=== PATIENT | male | born 1950 | race Caucasian/White ===

== ENCOUNTER 2016-10-18 16:45 | Inpatient (IN) | payer MEDICARE, MEDICAID ==
[~2016-10-18] VITALS: Ht 188 cm; Wt 77.3 kg
[~2016-10-18 16:45] MED LIST: AMLO-512 PO; ASPI-556 PO; ATOR10TA84 PO; BENZ1TAB10 PO; CARV25 PO; DIVA250T45 PO; FINA5TAB41 PO; GABA-531 PO; LIDOP TD; LISI-661 PO; LORA10TA7 PO; METF500T4 PO; MIRAUD PO; QUET300T2 PO; RISP1TAB7 PO; SITA25 PO; TAMS0.4C32 PO; THIA100 PO
[2016-10-18] MEDS ORDERED: LOSA50TA37 PO (18:39)
[2016-10-18] MEDS ORDERED: LISI-662 PO (18:39)
[2016-10-18] MEDS ORDERED: RISP1TAB54 PO (18:39)
[2016-10-18 18:40] LABS: APPEARANCE,URINE CLEAR (CLEAR); GLUCOSE, URINE (UA) >=1000 mg/dL (NEGATIVE); KETONES,URINE NEGATIVE (NEGATIVE); LEUKOCYTE ESTERASE ,URINE NEGATIVE (NEGATIVE); OCCULT BLOOD,URINE NEGATIVE (NEGATIVE); PH,URINE 6.5 (5.0-8.0); PROTEIN,URINE NEGATIVE (NEGATIVE)
[2016-10-18 18:41] LABS: ADD UA MICROSCOPIC YES
[2016-10-18 18:42] LABS: BASOPHILS % (AUTO) 0.4 % (0.0-2.0); EOSINOPHILS % (AUTO) 1.1 % (1.0-6.0); HEMOGLOBIN 11.2 g/dL (13.5-17.5); LYMPHOCYTES # (AUTO) 1.5 K/uL (1.0-4.8); LYMPHOCYTES % (AUTO) 23.3 % (22.0-44.0); MEAN CORPUSCULAR HGB CONC 32.9 G/dL (31.0-37.0); MEAN CORPUSCULAR VOLUME 88 fL (80-100); MONOCYTES # (AUTO) 0.6 K/uL (0.1-1.0); MONOCYTES % (AUTO) 10.2 % (2.0-9.0); NEUTROPHILS # (AUTO) 4.1 K/uL (1.8-7.7); PLATELET COUNT (AUTO) 84 K/uL (150-450); RED BLOOD CELL COUNT(AUTO) 3.85 MIL/uL (4.50-5.90); RED CELL DISTRIBUTION WIDTH 12.5 % (11.5-14.5); WHITE BLOOD COUNT (AUTO) 6.2 K/uL (4.5-11.0)
[2016-10-18 18:49] LABS: SQUAMOUS EPITHELIAL CELL,UR Rare /LPF (None Seen)
[2016-10-18 18:51] LABS: RBC,URINE None Seen /HPF (0-2); WBC,URINE 0-2 /HPF (0-5)
[2016-10-18 18:51] LABS: ANION GAP 7 mmol/L (8-16); CALCIUM, TOTAL 8.8 mg/dL (8.8-10.5); CARBON DIOXIDE 24 mmol/L (22-29); CHLORIDE 102 mmol/L (98-107); CREATININE 1.03 mg/dL (0.60-1.30); GLOMERULAR FILTR. RATE CALC > 60 mL/min (>60); POTASSIUM 4.1 mmol/L (3.5-5.1); SODIUM SERUM 133 mmol/L (136-145); UREA NITROGEN, BLOOD 19 mg/dL (7-18)
[2016-10-18 18:57] LABS: ALANINE AMINOTRANSFERASE 66 U/L (12-78); ALBUMIN 3.1 g/dL (3.4-5.0); ASPARTATE AMINOTRANSFERASE 27 U/L (15-37); BILIRUBIN,TOTAL 0.3 mg/dL (0.1-1.0); TOTAL PROTEIN, SERUM 6.5 g/dL (6.4-8.2)
[2016-10-18 19:15] LABS: VALPROIC ACID < 3 mcg/mL (50-100)
[2016-10-18] MEDS ORDERED: LORazepam 2 MG TABLET PO ONE (20:00)
[2016-10-18] MEDS ORDERED: QUEtiapine FUMARATE 100 MG TABLET PO ONE (20:00)
[2016-10-18 20:21] LABS: GLUCOSE,POINT OF CARE 356 MG/DL (70-110)
[2016-10-18] MEDS ORDERED: SODIUM CHLORIDE 0.9% 1,000 ML IV ONE (20:30)
[2016-10-18] MEDS ORDERED: INSULIN REGULAR, HUMAN 100 UNITS/ML IVP ONE (20:30)
[2016-10-18] MEDS ORDERED: HALOPERIDOL 5 MG TABLET PO PRN (20:30)
[2016-10-18] MEDS ORDERED: BENZTROPINE MESYLATE 1 MG TABLET PO SCH (21:00)
[2016-10-18] MEDS ORDERED: DIVALPROEX SODIUM 500 MG ER TABLET PO SCH (21:00)
[2016-10-18] MEDS ORDERED: QUEtiapine FUMARATE 300 MG TABLET PO SCH (21:00)
[2016-10-18 21:40] LABS: GLUCOSE COMMENT 1 Doctor Notified; GLUCOSE,POINT OF CARE 195 MG/DL (70-110)
[2016-10-19 00:02] VITALS: BP 111/75
[2016-10-19 00:35] VITALS: BP 111/75
[2016-10-19] MEDS ORDERED: -PHARMACY VACCINE NOTE- MISC ONE ×2 (02:15)
[2016-10-19 06:01] LABS: GLUCOSE,POINT OF CARE 261 MG/DL (70-110)
[2016-10-19 08:26] VITALS: BP 119/65
[2016-10-19] MEDS: BENZTROPINE MESYLATE 1 MG TABLET PO SCH ×2 (08:44→20:06)
[2016-10-19] MEDS: DIVALPROEX SODIUM 500 MG ER TABLET PO SCH ×2 (08:45→16:35)
[2016-10-19] MEDS ORDERED: BENZOCAINE/MENTHOL LOZENGE MM PRN (09:15)
[2016-10-19] MEDS ORDERED: INSULIN ASPART 100 UNITS/ML SQ PRN (09:15)
[2016-10-19] MEDS ORDERED: ACETAMINOPHEN 325 MG TABLET PO PRN (09:15)
[2016-10-19] MEDS ORDERED: MAG HYDROX/AL HYDROX/SIMETH ES 30 ML SUSPENSION UDCUP PO PRN (09:15)
[2016-10-19] MEDS ORDERED: GLUCAGON,HUMAN RECOMBINANT 1 MG VIAL IM PRN (09:15)
[2016-10-19] MEDS ORDERED: CloNIDine HCL 0.1 MG TABLET PO PRN (09:15)
[2016-10-19] MEDS ORDERED: BACITRACIN 28.4 GM OINTMENT TP PRN (09:15)
[2016-10-19] MEDS ORDERED: PETROLATUM,WHITE 71 GM JELLY TP PRN (09:15)
[2016-10-19] MEDS ORDERED: MAGNESIUM HYDROXIDE SUSPENSION 30 ML UDCUP PO PRN (09:15)
[2016-10-19 16:11] VITALS: BP 113/60
[2016-10-19] MEDS: CARVEDILOL 25 MG TABLET PO SCH (16:35)
[2016-10-19] MEDS: MetFORMIN HCL 500 MG TABLET PO SCH (16:35)
[2016-10-19 16:45] LABS: GLUCOSE COMMENT 1 Doctor Notified; GLUCOSE,POINT OF CARE 433 MG/DL (70-110)
[2016-10-19] MEDS: INSULIN ASPART 100 UNITS/ML SQ PRN (17:08)
[2016-10-19 18:51] LABS: GLUCOSE,POINT OF CARE 291 MG/DL (70-110)
[2016-10-19 19:34] VITALS: BP 115/68
[2016-10-19] MEDS: LORazepam 2 MG TABLET PO PRN (19:36)
[2016-10-19] MEDS: QUEtiapine FUMARATE 300 MG TABLET PO SCH (20:06)
[2016-10-19 20:26] LABS: GLUCOSE,POINT OF CARE 98 MG/DL (70-110)
[2016-10-19] MEDS: ZOLPIDEM TARTRATE 10 MG TABLET PO PRN (21:03)
[2016-10-20 00:12] VITALS: BP 102/61
[2016-10-20 06:11] LABS: GLUCOSE,POINT OF CARE 217 MG/DL (70-110)
[2016-10-20] MEDS: LEVOTHYROXINE SODIUM 25 MCG TABLET PO SCH (06:41)
[2016-10-20] MEDS: MetFORMIN HCL 500 MG TABLET PO SCH ×2 (06:41→17:04)
[2016-10-20] MEDS: INSULIN ASPART 100 UNITS/ML SQ PRN ×3 (06:55→16:59)
[2016-10-20 08:28] VITALS: BP 105/66
[2016-10-20] MEDS: DIVALPROEX SODIUM 500 MG ER TABLET PO SCH ×2 (09:21→17:04)
[2016-10-20] MEDS: BENZTROPINE MESYLATE 1 MG TABLET PO SCH ×2 (09:22→20:37)
[2016-10-20] MEDS: TERAZOSIN HCL 2 MG CAPSULE PO SCH (09:22)
[2016-10-20] MEDS: CHOLECALCIFEROL (VIT D3) 1,000 UNITS TABLET PO SCH (09:22)
[2016-10-20] MEDS: CARVEDILOL 25 MG TABLET PO SCH ×2 (09:22→17:04)
[2016-10-20] MEDS: LISINOPRIL 20 MG TABLET PO SCH (09:23)
[2016-10-20] MEDS: NICOTINE 21 MG/24 HOUR PATCH TD SCH (09:24)
[2016-10-20] MEDS: LORazepam 2 MG TABLET PO PRN ×2 (09:30→14:34)
[2016-10-20] MEDS: QUEtiapine FUMARATE 100 MG TABLET PO PRN (16:09)
[2016-10-20 16:29] VITALS: BP 136/77
[2016-10-20 17:41] LABS: GLUCOSE COMMENT 1 Received Meds; GLUCOSE,POINT OF CARE 291 MG/DL (70-110)
[2016-10-20 17:41] LABS: GLUCOSE,POINT OF CARE 260 MG/DL (70-110)
[2016-10-20] MEDS: QUEtiapine FUMARATE 300 MG TABLET PO SCH (20:37)
[2016-10-20 21:36] LABS: GLUCOSE,POINT OF CARE 68 MG/DL (70-110)
[2016-10-20 21:36] LABS: GLUCOSE,POINT OF CARE 88 MG/DL (70-110)
[2016-10-21 00:23] VITALS: BP 105/68
[2016-10-21 06:16] LABS: GLUCOSE,POINT OF CARE 174 MG/DL (70-110)
[2016-10-21] MEDS: LEVOTHYROXINE SODIUM 25 MCG TABLET PO SCH (07:01)
[2016-10-21] MEDS: MetFORMIN HCL 500 MG TABLET PO SCH ×2 (07:01→16:15)
[2016-10-21] MEDS: INSULIN ASPART 100 UNITS/ML SQ PRN ×4 (07:08→21:12)
[2016-10-21 08:53] VITALS: BP 101/68
[2016-10-21] MEDS: CARVEDILOL 25 MG TABLET PO SCH ×2 (09:02→16:14)
[2016-10-21] MEDS: LISINOPRIL 20 MG TABLET PO SCH (09:02)
[2016-10-21] MEDS: TERAZOSIN HCL 2 MG CAPSULE PO SCH (09:02)
[2016-10-21] MEDS: LORazepam 2 MG TABLET PO PRN ×2 (09:03→16:15)
[2016-10-21] MEDS: DIVALPROEX SODIUM 500 MG ER TABLET PO SCH ×2 (09:04→16:14)
[2016-10-21] MEDS: CHOLECALCIFEROL (VIT D3) 1,000 UNITS TABLET PO SCH (09:06)
[2016-10-21] MEDS: BENZTROPINE MESYLATE 1 MG TABLET PO SCH ×2 (09:06→20:56)
[2016-10-21] MEDS: NICOTINE 21 MG/24 HOUR PATCH TD SCH (09:07)
[2016-10-21 11:30] LABS: GLUCOSE,POINT OF CARE 284 MG/DL (70-110)
[2016-10-21] MEDS: QUEtiapine FUMARATE 100 MG TABLET PO PRN (16:15)
[2016-10-21] MEDS: IBUPROFEN 600 MG TABLET PO PRN (16:15)
[2016-10-21 16:23] VITALS: BP 118/68
[2016-10-21 17:31] LABS: GLUCOSE COMMENT 1 Received Meds; GLUCOSE,POINT OF CARE 278 MG/DL (70-110)
[2016-10-21] MEDS: QUEtiapine FUMARATE 300 MG TABLET PO SCH (20:56)
[2016-10-21 22:16] LABS: GLUCOSE COMMENT 1 Received Meds; GLUCOSE,POINT OF CARE 229 MG/DL (70-110)
[2016-10-22 00:43] VITALS: BP 123/79
[2016-10-22 06:12] LABS: GLUCOSE,POINT OF CARE 239 MG/DL (70-110)
[2016-10-22] MEDS: LEVOTHYROXINE SODIUM 25 MCG TABLET PO SCH (06:44)
[2016-10-22] MEDS: MetFORMIN HCL 500 MG TABLET PO SCH ×2 (06:44→17:07)
[2016-10-22] MEDS: INSULIN ASPART 100 UNITS/ML SQ PRN ×3 (06:48→17:02)
[2016-10-22 08:02] VITALS: BP 120/67
[2016-10-22] MEDS: TERAZOSIN HCL 2 MG CAPSULE PO SCH (09:11)
[2016-10-22] MEDS: BENZTROPINE MESYLATE 1 MG TABLET PO SCH ×2 (09:11→20:19)
[2016-10-22] MEDS: DIVALPROEX SODIUM 500 MG ER TABLET PO SCH ×2 (09:11→17:07)
[2016-10-22] MEDS: CARVEDILOL 25 MG TABLET PO SCH ×2 (09:11→17:07)
[2016-10-22] MEDS: CHOLECALCIFEROL (VIT D3) 1,000 UNITS TABLET PO SCH (09:11)
[2016-10-22] MEDS: LISINOPRIL 20 MG TABLET PO SCH (09:12)
[2016-10-22] MEDS: NICOTINE 21 MG/24 HOUR PATCH TD SCH (09:15)
[2016-10-22] MEDS: ALBUTEROL SULFATE HFA 90 MCG/PUFF 8 GM INHALER IH PRN (10:19)
[2016-10-22 11:41] LABS: GLUCOSE,POINT OF CARE 212 MG/DL (70-110)
[2016-10-22 16:13] VITALS: BP 111/71
[2016-10-22 16:46] LABS: GLUCOSE,POINT OF CARE 196 MG/DL (70-110)
[2016-10-22] MEDS: LORazepam 2 MG TABLET PO PRN (17:07)
[2016-10-22] MEDS: QUEtiapine FUMARATE 300 MG TABLET PO SCH (20:19)
[2016-10-22 21:12] LABS: GLUCOSE,POINT OF CARE 170 MG/DL (70-110)
[2016-10-23] VITALS: BP 123/60
[2016-10-23] MEDS: ZOLPIDEM TARTRATE 10 MG TABLET PO PRN
[2016-10-23 06:15] LABS: GLUCOSE,POINT OF CARE 185 MG/DL (70-110)
[2016-10-23] MEDS: LEVOTHYROXINE SODIUM 25 MCG TABLET PO SCH (06:42)
[2016-10-23] MEDS: MetFORMIN HCL 500 MG TABLET PO SCH ×2 (06:42→16:09)
[2016-10-23] MEDS: INSULIN ASPART 100 UNITS/ML SQ PRN ×4 (06:54→21:03)
[2016-10-23 08:02] VITALS: BP 123/60
[2016-10-23] MEDS: LISINOPRIL 20 MG TABLET PO SCH (09:14)
[2016-10-23] MEDS: MULTIVITAMINS WITH MINERALS, THERAPEUTIC TABLET PO SCH (09:14)
[2016-10-23] MEDS: CHOLECALCIFEROL (VIT D3) 1,000 UNITS TABLET PO SCH (09:14)
[2016-10-23] MEDS: CARVEDILOL 25 MG TABLET PO SCH ×2 (09:15→16:09)
[2016-10-23] MEDS: DIVALPROEX SODIUM 500 MG ER TABLET PO SCH ×2 (09:15→16:08)
[2016-10-23] MEDS: TERAZOSIN HCL 2 MG CAPSULE PO SCH (09:15)
[2016-10-23] MEDS: BENZTROPINE MESYLATE 1 MG TABLET PO SCH ×2 (09:15→20:16)
[2016-10-23] MEDS: NICOTINE 21 MG/24 HOUR PATCH TD SCH (09:19)
[2016-10-23] MEDS: LORazepam 2 MG TABLET PO PRN (09:39)
[2016-10-23 11:21] LABS: GLUCOSE,POINT OF CARE 243 MG/DL (70-110)
[2016-10-23 16:07] VITALS: BP 116/70
[2016-10-23 17:46] LABS: GLUCOSE COMMENT 1 Received Meds; GLUCOSE,POINT OF CARE 190 MG/DL (70-110)
[2016-10-23] MEDS: QUEtiapine FUMARATE 300 MG TABLET PO SCH (20:16)
[2016-10-23] MEDS: ALBUTEROL SULFATE HFA 90 MCG/PUFF 8 GM INHALER IH PRN (21:32)
[2016-10-23 22:21] LABS: GLUCOSE,POINT OF CARE 228 MG/DL (70-110)
[2016-10-24 00:02] VITALS: BP 112/71
[2016-10-24 06:31] LABS: GLUCOSE,POINT OF CARE 182 MG/DL (70-110)
[2016-10-24] MEDS: LEVOTHYROXINE SODIUM 25 MCG TABLET PO SCH (06:39)
[2016-10-24] MEDS: MetFORMIN HCL 500 MG TABLET PO SCH ×2 (06:39→17:08)
[2016-10-24] MEDS: INSULIN ASPART 100 UNITS/ML SQ PRN ×4 (07:02→20:43)
[2016-10-24] MEDS: MULTIVITAMINS WITH MINERALS, THERAPEUTIC TABLET PO SCH (08:32)
[2016-10-24] MEDS: CARVEDILOL 25 MG TABLET PO SCH ×2 (08:32→17:09)
[2016-10-24] MEDS: DIVALPROEX SODIUM 500 MG ER TABLET PO SCH ×2 (08:32→17:08)
[2016-10-24] MEDS: CHOLECALCIFEROL (VIT D3) 1,000 UNITS TABLET PO SCH (08:32)
[2016-10-24] MEDS: BENZTROPINE MESYLATE 1 MG TABLET PO SCH ×2 (08:33→20:45)
[2016-10-24 08:34] VITALS: BP_SYST 116; BP_SYST 149; BP_DIAS 53; BP_DIAS 89
[2016-10-24] MEDS: LISINOPRIL 20 MG TABLET PO SCH (08:34)
[2016-10-24] MEDS: TERAZOSIN HCL 2 MG CAPSULE PO SCH (08:34)
[2016-10-24] MEDS: NICOTINE 21 MG/24 HOUR PATCH TD SCH (08:34)
[2016-10-24 09:20] VITALS: BP 132/82
[2016-10-24] MEDS: IBUPROFEN 600 MG TABLET PO PRN (09:22)
[2016-10-24 10:22] VITALS: BP 128/78
[2016-10-24 10:35] VITALS: BP 128/78
[2016-10-24 11:27] LABS: GLUCOSE,POINT OF CARE 337 MG/DL (70-110)
[2016-10-24 16:13] VITALS: BP 130/75
[2016-10-24 17:06] LABS: GLUCOSE,POINT OF CARE 168 MG/DL (70-110)
[2016-10-24] MEDS: LORazepam 2 MG TABLET PO PRN (17:12)
[2016-10-24 20:46] LABS: GLUCOSE,POINT OF CARE 278 MG/DL (70-110)
[2016-10-24] MEDS: QUEtiapine FUMARATE 300 MG TABLET PO SCH (20:46)
[2016-10-24] MEDS: ZOLPIDEM TARTRATE 10 MG TABLET PO PRN (20:46)
[2016-10-25 00:47] VITALS: BP 130/88
[2016-10-25 06:16] LABS: GLUCOSE,POINT OF CARE 197 MG/DL (70-110)
[2016-10-25] MEDS: LEVOTHYROXINE SODIUM 25 MCG TABLET PO SCH (06:56)
[2016-10-25] MEDS: MetFORMIN HCL 500 MG TABLET PO SCH ×2 (06:56→17:00)
[2016-10-25] MEDS: INSULIN ASPART 100 UNITS/ML SQ PRN ×2 (06:59→11:29)
[2016-10-25 08:25] VITALS: BP 128/83
[2016-10-25] MEDS: CARVEDILOL 25 MG TABLET PO SCH ×2 (08:47→17:00)
[2016-10-25] MEDS: CHOLECALCIFEROL (VIT D3) 1,000 UNITS TABLET PO SCH (08:47)
[2016-10-25] MEDS: MULTIVITAMINS WITH MINERALS, THERAPEUTIC TABLET PO SCH (08:47)
[2016-10-25] MEDS: BENZTROPINE MESYLATE 1 MG TABLET PO SCH ×2 (08:47→21:00)
[2016-10-25] MEDS: TERAZOSIN HCL 2 MG CAPSULE PO SCH (08:47)
[2016-10-25] MEDS: LISINOPRIL 20 MG TABLET PO SCH (08:47)
[2016-10-25] MEDS: NICOTINE 21 MG/24 HOUR PATCH TD SCH (08:48)
[2016-10-25] MEDS: DIVALPROEX SODIUM 500 MG ER TABLET PO SCH ×2 (08:48→17:00)
[2016-10-25] MEDS: LORazepam 2 MG TABLET PO PRN ×2 (08:54→13:14)
[2016-10-25 11:32] LABS: GLUCOSE,POINT OF CARE 271 MG/DL (70-110)
[2016-10-25] MEDS: QUEtiapine FUMARATE 300 MG TABLET PO SCH (21:00)
[2016-10-26] MEDS: LEVOTHYROXINE SODIUM 25 MCG TABLET PO SCH (06:30)
[2016-10-26] MEDS: INSULIN ASPART 100 UNITS/ML SQ PRN (06:35)
[2016-10-26] MEDS: MetFORMIN HCL 500 MG TABLET PO SCH ×2 (07:00→17:00)
[2016-10-26] MEDS: LISINOPRIL 20 MG TABLET PO SCH (09:00)
[2016-10-26] MEDS: DIVALPROEX SODIUM 500 MG ER TABLET PO SCH ×2 (09:00→17:00)
[2016-10-26] MEDS: NICOTINE 21 MG/24 HOUR PATCH TD SCH (09:00)
[2016-10-26] MEDS: CHOLECALCIFEROL (VIT D3) 1,000 UNITS TABLET PO SCH (09:00)
[2016-10-26] MEDS: MULTIVITAMINS WITH MINERALS, THERAPEUTIC TABLET PO SCH (09:00)
[2016-10-26] MEDS: TERAZOSIN HCL 2 MG CAPSULE PO SCH (09:00)
[2016-10-26] MEDS: CARVEDILOL 25 MG TABLET PO SCH ×2 (09:00→17:00)
[2016-10-26] MEDS: BENZTROPINE MESYLATE 1 MG TABLET PO SCH ×2 (09:00→21:00)
[2016-10-26] MEDS: QUEtiapine FUMARATE 300 MG TABLET PO SCH (21:00)
[2016-10-26 23:31] LABS: GLUCOSE COMMENT 1 Received Meds; GLUCOSE,POINT OF CARE 158 MG/DL (70-110)
[2016-10-26 23:31] LABS: GLUCOSE,POINT OF CARE 162 MG/DL (70-110)
[2016-10-26 23:31] LABS: GLUCOSE COMMENT 1 Received Meds; GLUCOSE,POINT OF CARE 195 MG/DL (70-110)
[2016-10-26 23:31] LABS: GLUCOSE COMMENT 1 Received Meds; GLUCOSE,POINT OF CARE 203 MG/DL (70-110)
[2016-10-26 23:31] LABS: GLUCOSE COMMENT 1 Received Meds; GLUCOSE,POINT OF CARE 207 MG/DL (70-110)
[2016-10-26 23:31] LABS: GLUCOSE,POINT OF CARE 276 MG/DL (70-110)
[2016-10-27 00:01] VITALS: BP 140/82
[2016-10-27] MEDS: LEVOTHYROXINE SODIUM 25 MCG TABLET PO SCH ×2 (06:15→06:30)
[2016-10-27] MEDS: MetFORMIN HCL 500 MG TABLET PO SCH ×3 (06:17→16:29)
[2016-10-27] MEDS: INSULIN ASPART 100 UNITS/ML SQ PRN ×4 (06:32→21:26)
[2016-10-27 08:02] VITALS: BP 140/86
[2016-10-27 08:02] LABS: GLUCOSE,POINT OF CARE 193 MG/DL (70-110)
[2016-10-27] MEDS: CARVEDILOL 25 MG TABLET PO SCH ×2 (08:33→16:29)
[2016-10-27] MEDS: MULTIVITAMINS WITH MINERALS, THERAPEUTIC TABLET PO SCH (08:33)
[2016-10-27] MEDS: TERAZOSIN HCL 2 MG CAPSULE PO SCH (08:33)
[2016-10-27] MEDS: DIVALPROEX SODIUM 500 MG ER TABLET PO SCH ×2 (08:33→16:29)
[2016-10-27] MEDS: CHOLECALCIFEROL (VIT D3) 1,000 UNITS TABLET PO SCH (08:34)
[2016-10-27] MEDS: LISINOPRIL 20 MG TABLET PO SCH (08:34)
[2016-10-27] MEDS: NICOTINE 21 MG/24 HOUR PATCH TD SCH (08:34)
[2016-10-27] MEDS: BENZTROPINE MESYLATE 1 MG TABLET PO SCH ×2 (08:37→20:21)
[2016-10-27 11:16] LABS: GLUCOSE,POINT OF CARE 255 MG/DL (70-110)
[2016-10-27 16:15] VITALS: BP 125/68
[2016-10-27 19:21] LABS: GLUCOSE COMMENT 1 Received Meds; GLUCOSE,POINT OF CARE 178 MG/DL (70-110)
[2016-10-27] MEDS: QUEtiapine FUMARATE 300 MG TABLET PO SCH (20:21)
[2016-10-27 22:06] LABS: GLUCOSE COMMENT 1 Received Meds; GLUCOSE,POINT OF CARE 203 MG/DL (70-110)
[2016-10-28 00:16] VITALS: BP 118/80
[2016-10-28] MEDS: LEVOTHYROXINE SODIUM 25 MCG TABLET PO SCH (06:09)
[2016-10-28] MEDS: MetFORMIN HCL 500 MG TABLET PO SCH ×2 (06:39→16:17)
[2016-10-28 08:58] VITALS: BP 124/74
[2016-10-28] MEDS: CHOLECALCIFEROL (VIT D3) 1,000 UNITS TABLET PO SCH (09:28)
[2016-10-28] MEDS: CARVEDILOL 25 MG TABLET PO SCH ×2 (09:29→16:17)
[2016-10-28] MEDS: LISINOPRIL 20 MG TABLET PO SCH (09:29)
[2016-10-28] MEDS: MULTIVITAMINS WITH MINERALS, THERAPEUTIC TABLET PO SCH (09:29)
[2016-10-28] MEDS: BENZTROPINE MESYLATE 1 MG TABLET PO SCH ×2 (09:29→20:48)
[2016-10-28] MEDS: TERAZOSIN HCL 2 MG CAPSULE PO SCH (09:29)
[2016-10-28] MEDS: DIVALPROEX SODIUM 500 MG ER TABLET PO SCH ×2 (09:30→16:17)
[2016-10-28] MEDS: LORazepam 2 MG TABLET PO PRN (09:31)
[2016-10-28] MEDS: NICOTINE 21 MG/24 HOUR PATCH TD SCH (09:31)
[2016-10-28 11:21] LABS: GLUCOSE,POINT OF CARE 199 MG/DL (70-110)
[2016-10-28] MEDS: INSULIN ASPART 100 UNITS/ML SQ PRN ×3 (11:27→21:23)
[2016-10-28] MEDS: TAMSULOSIN HCL 0.4 MG CAPSULE PO SCH (13:01)
[2016-10-28 14:06] LABS: GLUCOSE COMMENT 1 Received Meds; GLUCOSE,POINT OF CARE 265 MG/DL (70-110)
[2016-10-28 16:00] VITALS: BP 130/64
[2016-10-28 17:16] LABS: GLUCOSE COMMENT 1 Received Meds; GLUCOSE,POINT OF CARE 198 MG/DL (70-110)
[2016-10-28] MEDS: QUEtiapine FUMARATE 300 MG TABLET PO SCH (20:48)
[2016-10-28 21:41] LABS: GLUCOSE COMMENT 1 Received Meds; GLUCOSE,POINT OF CARE 186 MG/DL (70-110)
[2016-10-29 01:13] VITALS: BP 145/76
[2016-10-29] MEDS: LEVOTHYROXINE SODIUM 25 MCG TABLET PO SCH (06:26)
[2016-10-29] MEDS: MetFORMIN HCL 500 MG TABLET PO SCH ×2 (06:26→16:56)
[2016-10-29 06:35] LABS: GLUCOSE,POINT OF CARE 215 MG/DL (70-110)
[2016-10-29] MEDS: INSULIN ASPART 100 UNITS/ML SQ PRN ×4 (07:00→20:32)
[2016-10-29] MEDS: BENZTROPINE MESYLATE 1 MG TABLET PO SCH ×2 (08:17→20:27)
[2016-10-29] MEDS: TERAZOSIN HCL 2 MG CAPSULE PO SCH (08:18)
[2016-10-29] MEDS: DIVALPROEX SODIUM 500 MG ER TABLET PO SCH ×2 (08:18→16:56)
[2016-10-29] MEDS: MULTIVITAMINS WITH MINERALS, THERAPEUTIC TABLET PO SCH (08:18)
[2016-10-29] MEDS: TAMSULOSIN HCL 0.4 MG CAPSULE PO SCH (08:18)
[2016-10-29] MEDS: LISINOPRIL 20 MG TABLET PO SCH (08:18)
[2016-10-29] MEDS: CARVEDILOL 25 MG TABLET PO SCH ×2 (08:18→16:56)
[2016-10-29] MEDS: CHOLECALCIFEROL (VIT D3) 1,000 UNITS TABLET PO SCH (08:18)
[2016-10-29] MEDS: NICOTINE 21 MG/24 HOUR PATCH TD SCH (08:19)
[2016-10-29 08:28] VITALS: BP 125/80
[2016-10-29] MEDS: OXYBUTYNIN CHLORIDE 5 MG TABLET PO SCH ×2 (09:06→16:56)
[2016-10-29 11:11] LABS: GLUCOSE COMMENT 1 Received Meds; GLUCOSE,POINT OF CARE 257 MG/DL (70-110)
[2016-10-29 16:05] VITALS: BP 116/65
[2016-10-29 16:56] LABS: GLUCOSE COMMENT 1 Received Meds; GLUCOSE,POINT OF CARE 162 MG/DL (70-110)
[2016-10-29] MEDS: LORazepam 2 MG TABLET PO PRN (18:47)
[2016-10-29] MEDS: QUEtiapine FUMARATE 300 MG TABLET PO SCH (20:27)
[2016-10-29 20:41] LABS: GLUCOSE COMMENT 1 Received Meds; GLUCOSE,POINT OF CARE 165 MG/DL (70-110)
[2016-10-30 06:20] LABS: GLUCOSE,POINT OF CARE 151 MG/DL (70-110)
[2016-10-30] MEDS: MetFORMIN HCL 500 MG TABLET PO SCH ×2 (06:41→16:37)
[2016-10-30] MEDS: LEVOTHYROXINE SODIUM 25 MCG TABLET PO SCH (06:41)
[2016-10-30] MEDS: INSULIN ASPART 100 UNITS/ML SQ PRN ×4 (06:57→20:53)
[2016-10-30 08:00] VITALS: BP 143/103
[2016-10-30] MEDS: CARVEDILOL 25 MG TABLET PO SCH ×2 (08:17→16:37)
[2016-10-30] MEDS: DIVALPROEX SODIUM 500 MG ER TABLET PO SCH ×2 (08:17→16:37)
[2016-10-30] MEDS: OXYBUTYNIN CHLORIDE 5 MG TABLET PO SCH ×2 (08:17→16:37)
[2016-10-30] MEDS: BENZTROPINE MESYLATE 1 MG TABLET PO SCH ×2 (08:17→20:47)
[2016-10-30] MEDS: LISINOPRIL 20 MG TABLET PO SCH (08:17)
[2016-10-30] MEDS: NICOTINE 21 MG/24 HOUR PATCH TD SCH (08:18)
[2016-10-30] MEDS: TERAZOSIN HCL 2 MG CAPSULE PO SCH (08:18)
[2016-10-30] MEDS: MULTIVITAMINS WITH MINERALS, THERAPEUTIC TABLET PO SCH (08:18)
[2016-10-30] MEDS: CHOLECALCIFEROL (VIT D3) 1,000 UNITS TABLET PO SCH (08:18)
[2016-10-30] MEDS: TAMSULOSIN HCL 0.4 MG CAPSULE PO SCH (08:18)
[2016-10-30 09:30] VITALS: BP 138/86
[2016-10-30 10:51] LABS: GLUCOSE COMMENT 1 Received Meds; GLUCOSE,POINT OF CARE 163 MG/DL (70-110)
[2016-10-30 16:02] VITALS: BP 120/72
[2016-10-30 17:01] LABS: GLUCOSE COMMENT 1 Received Meds; GLUCOSE,POINT OF CARE 234 MG/DL (70-110)
[2016-10-30] MEDS: LORazepam 2 MG TABLET PO PRN (18:15)
[2016-10-30] MEDS: QUEtiapine FUMARATE 300 MG TABLET PO SCH (20:47)
[2016-10-30 21:06] LABS: GLUCOSE COMMENT 1 Received Meds; GLUCOSE,POINT OF CARE 148 MG/DL (70-110)
[2016-10-31] MEDS: LEVOTHYROXINE SODIUM 25 MCG TABLET PO SCH (06:06)
[2016-10-31 06:32] VITALS: BP 128/75
[2016-10-31] MEDS: INSULIN ASPART 100 UNITS/ML SQ PRN ×4 (06:34→21:31)
[2016-10-31 06:46] LABS: GLUCOSE,POINT OF CARE 251 MG/DL (70-110)
[2016-10-31] MEDS: MetFORMIN HCL 500 MG TABLET PO SCH ×2 (06:47→16:51)
[2016-10-31 08:24] VITALS: BP 115/65
[2016-10-31] MEDS: TAMSULOSIN HCL 0.4 MG CAPSULE PO SCH (08:57)
[2016-10-31] MEDS: NICOTINE 21 MG/24 HOUR PATCH TD SCH (08:57)
[2016-10-31] MEDS: CARVEDILOL 25 MG TABLET PO SCH ×2 (08:57→16:51)
[2016-10-31] MEDS: OXYBUTYNIN CHLORIDE 5 MG TABLET PO SCH ×2 (08:57→16:51)
[2016-10-31] MEDS: LISINOPRIL 20 MG TABLET PO SCH (08:57)
[2016-10-31] MEDS: BENZTROPINE MESYLATE 1 MG TABLET PO SCH ×2 (08:57→20:53)
[2016-10-31] MEDS: MULTIVITAMINS WITH MINERALS, THERAPEUTIC TABLET PO SCH (08:57)
[2016-10-31] MEDS: TERAZOSIN HCL 2 MG CAPSULE PO SCH (08:57)
[2016-10-31] MEDS: CHOLECALCIFEROL (VIT D3) 1,000 UNITS TABLET PO SCH (08:58)
[2016-10-31] MEDS: DIVALPROEX SODIUM 500 MG ER TABLET PO SCH ×2 (08:58→16:51)
[2016-10-31 11:16] LABS: GLUCOSE COMMENT 1 Received Meds; GLUCOSE,POINT OF CARE 161 MG/DL (70-110)
[2016-10-31 16:17] VITALS: BP 119/83
[2016-10-31 19:46] LABS: GLUCOSE COMMENT 1 Received Meds; GLUCOSE,POINT OF CARE 182 MG/DL (70-110)
[2016-10-31] MEDS: QUEtiapine FUMARATE 300 MG TABLET PO SCH (20:53)
[2016-10-31 22:01] LABS: GLUCOSE COMMENT 1 Received Meds; GLUCOSE,POINT OF CARE 168 MG/DL (70-110)
[2016-11-01 06:21] LABS: GLUCOSE,POINT OF CARE 163 MG/DL (70-110)
[2016-11-01 06:22] VITALS: BP 143/82
[2016-11-01] MEDS: LEVOTHYROXINE SODIUM 25 MCG TABLET PO SCH (06:35)
[2016-11-01] MEDS: MetFORMIN HCL 500 MG TABLET PO SCH (06:36)
[2016-11-01] MEDS: INSULIN ASPART 100 UNITS/ML SQ PRN ×2 (06:53→11:31)
[2016-11-01 08:14] VITALS: BP 138/85
[2016-11-01] MEDS: TERAZOSIN HCL 2 MG CAPSULE PO SCH (09:01)
[2016-11-01] MEDS: BENZTROPINE MESYLATE 1 MG TABLET PO SCH (09:01)
[2016-11-01] MEDS: CHOLECALCIFEROL (VIT D3) 1,000 UNITS TABLET PO SCH (09:01)
[2016-11-01] MEDS: DIVALPROEX SODIUM 500 MG ER TABLET PO SCH (09:01)
[2016-11-01] MEDS: CARVEDILOL 25 MG TABLET PO SCH (09:02)
[2016-11-01] MEDS: OXYBUTYNIN CHLORIDE 5 MG TABLET PO SCH (09:02)
[2016-11-01] MEDS: NICOTINE 21 MG/24 HOUR PATCH TD SCH (09:02)
[2016-11-01] MEDS: MULTIVITAMINS WITH MINERALS, THERAPEUTIC TABLET PO SCH (09:02)
[2016-11-01] MEDS: LISINOPRIL 20 MG TABLET PO SCH (09:02)
[2016-11-01] MEDS: TAMSULOSIN HCL 0.4 MG CAPSULE PO SCH (09:02)
[2016-11-01] MEDS ORDERED: LISI-660 PO (09:08)
[2016-11-01] MEDS ORDERED: TERA2 PO (09:08)
[2016-11-01] MEDS ORDERED: TAMS0.4C32 PO (09:08)
[2016-11-01] MEDS ORDERED: LEVO25TA4 PO (09:08)
[2016-11-01] MEDS ORDERED: OXYB5 PO (09:08)
[2016-11-01] MEDS ORDERED: DIVA250T45 PO (09:08)
[2016-11-01] MEDS ORDERED: QUET300T2 PO (09:08)
[2016-11-01] MEDS ORDERED: VITAD1000 PO (09:08)
[2016-11-01 10:51] LABS: GLUCOSE,POINT OF CARE 199 MG/DL (70-110)
== END 2016-11-01 13:13 | disposition home or self-care (01) | DRG 750 ==
LOC: EMS 16:50 → B2S 23:30 → EMS 10-19 00:02
PROC: 3E0234Z Introduction of Serum, Toxoid and Vaccine into Muscle, Percutaneous Approach (ICD-10-PCS; principal; 2016-10-19)
DX: F25.0 Schizoaffective disorder, bipolar type (principal); D69.6 Thrombocytopenia, unspecified; E11.65 Type 2 diabetes mellitus with hyperglycemia; E55.9 Vitamin D deficiency, unspecified; E87.1 Hypo-osmolality and hyponatremia; R45.851 Suicidal ideations; E03.9 Hypothyroidism, unspecified; B18.2 Chronic viral hepatitis C; E78.00 Pure hypercholesterolemia, unspecified; F17.210 Nicotine dependence, cigarettes, uncomplicated; I10 Essential (primary) hypertension; K21.9 Gastro-esophageal reflux disease without esophagitis; N40.1 Benign prostatic hyperplasia with lower urinary tract symptoms; N39.498 Other specified urinary incontinence; M19.90 Unspecified osteoarthritis, unspecified site; F15.90 Other stimulant use, unspecified, uncomplicated; R32 Unspecified urinary incontinence; Z59.0 Homelessness; Z81.8 Family history of other mental and behavioral disorders; Z86.73 Personal history of transient ischemic attack (TIA), and cerebral infarction without residual deficits; Z91.14 Patient's other noncompliance with medication regimen; Z71.6 Tobacco abuse counseling; Z91.5 Personal history of self-harm; Z91.012 Allergy to eggs; Z91.011 Allergy to milk products; Z79.899 Other long term (current) drug therapy; Z98.890 Other specified postprocedural states; Z23 Encounter for immunization
CPT/HCPCS: 82962; 96361; 96374; 99285; 99406; G0480; J1815; J3535; J7030

== ENCOUNTER 2019-09-26 15:26 | Emergency (ER) | payer MEDICARE, MEDICAID ==
[~2019-09-26] VITALS: Ht 177.8 cm; Wt 86.4 kg
[~2019-09-26 15:26] MED LIST changes: -AMLO-512 PO; -ASPI-556 PO; -ATOR10TA84 PO; +CHOL100018 PO; -FINA5TAB41 PO; -GABA-531 PO; +LEVO25TA4 PO; -LIDOP TD; +LISI-660 PO; -LISI-661 PO; -LORA10TA7 PO; +METF-960 PO; -METF500T4 PO; -MIRAUD PO; +OXYB5 PO; -RISP1TAB7 PO; -SITA25 PO; +TAMS-13 PO; -TAMS0.4C32 PO; +TERA2CAP10 PO; -THIA100 PO
[2019-09-26 16:15] LABS: GLUCOSE,POINT OF CARE 243 MG/DL (70-110)
[2019-09-26 18:19] LABS: BASOPHILS % (AUTO) 0.5 % (0.0-2.0); EOSINOPHILS % (AUTO) 0.8 % (1.0-6.0); HEMATOCRIT 41.5 % (41-53); HEMOGLOBIN 13.9 g/dL (13.5-17.5); LYMPHOCYTES % (AUTO) 23.3 % (22.0-44.0); MEAN CORPUSCULAR HEMOGLOBIN 29.8 pg (26.0-34.0); MEAN CORPUSCULAR HGB CONC 33.5 G/dL (31.0-37.0); MEAN CORPUSCULAR VOLUME 89 fL (80-100); MONOCYTES # (AUTO) 0.5 K/uL (0.1-1.0); MONOCYTES % (AUTO) 11.9 % (2.0-9.0); NEUTROPHILS # (AUTO) 2.7 K/uL (1.8-7.7); NEUTROPHILS % (AUTO) 63.5 % (40.0-70.0); PLATELET COUNT (AUTO) 112 K/uL (150-450); RED BLOOD CELL COUNT(AUTO) 4.66 MIL/uL (4.50-5.90); RED CELL DISTRIBUTION WIDTH 12.8 % (11.5-14.5)
[2019-09-26 18:32] LABS: ANION GAP 3 mmol/L (8-16); CALCIUM, TOTAL 9.1 mg/dL (8.8-10.5); CARBON DIOXIDE 32 mmol/L (22-29); CHLORIDE 99 mmol/L (98-107); GLOMERULAR FILTR. RATE CALC > 60 mL/min (>60); GLUCOSE,RANDOM 197 mg/dL (70-110); SODIUM SERUM 134 mmol/L (136-145); UREA NITROGEN, BLOOD 14 mg/dL (7-18)
[2019-09-26 18:39] LABS: ALANINE AMINOTRANSFERASE 90 U/L (12-78); ALBUMIN 3.7 g/dL (3.4-5.0); ALKALINE PHOSPHATASE 62 U/L (46-116); ASPARTATE AMINOTRANSFERASE 36 U/L (15-37); BILIRUBIN,TOTAL 0.3 mg/dL (0.1-1.0); TOTAL PROTEIN, SERUM 7.8 g/dL (6.4-8.2)
[2019-09-26 20:08] VITALS: BP 151/95
== END 2019-09-26 20:17 | disposition home or self-care (01) ==
LOC: EMS 15:29
DX: F32.9 Major depressive disorder, single episode, unspecified (principal); E11.9 Type 2 diabetes mellitus without complications; E78.00 Pure hypercholesterolemia, unspecified; I10 Essential (primary) hypertension; F20.9 Schizophrenia, unspecified; F17.210 Nicotine dependence, cigarettes, uncomplicated; E03.9 Hypothyroidism, unspecified; Z79.899 Other long term (current) drug therapy; Z79.84 Long term (current) use of oral hypoglycemic drugs; Z91.012 Allergy to eggs; Z91.011 Allergy to milk products
CPT/HCPCS: 36415; 80053; 82962; 85025; 99284; G0480

== ENCOUNTER 2019-10-12 07:22 | Emergency (ER) | payer MEDICARE, MEDICAID ==
[~2019-10-12] VITALS: Ht 188 cm; Wt 86.0 kg
[2019-10-12 07:52] LABS: GLUCOSE,POINT OF CARE 188 MG/DL (70-110)
[2019-10-12 09:26] LABS: BASOPHILS % (AUTO) 0.4 % (0.0-2.0); EOSINOPHILS % (AUTO) 0.6 % (1.0-6.0); HEMATOCRIT 35.7 % (41-53); HEMOGLOBIN 12.1 g/dL (13.5-17.5); LYMPHOCYTES # (AUTO) 0.8 K/uL (1.0-4.8); LYMPHOCYTES % (AUTO) 18.9 % (22.0-44.0); MEAN CORPUSCULAR HEMOGLOBIN 30.1 pg (26.0-34.0); MEAN CORPUSCULAR HGB CONC 33.9 G/dL (31.0-37.0); MEAN CORPUSCULAR VOLUME 89 fL (80-100); MONOCYTES # (AUTO) 0.5 K/uL (0.1-1.0); MONOCYTES % (AUTO) 11.1 % (2.0-9.0); RED BLOOD CELL COUNT(AUTO) 4.02 MIL/uL (4.50-5.90); RED CELL DISTRIBUTION WIDTH 12.7 % (11.5-14.5)
[2019-10-12 09:35] LABS: ANION GAP 7 mmol/L (8-16); CALCIUM, TOTAL 8.7 mg/dL (8.8-10.5); CARBON DIOXIDE 29 mmol/L (22-29); CHLORIDE 105 mmol/L (98-107); CREATININE 0.73 mg/dL (0.60-1.30); GLOMERULAR FILTR. RATE CALC > 60 mL/min (>60); GLUCOSE,RANDOM 182 mg/dL (70-110); POTASSIUM 4.4 mmol/L (3.5-5.1); SODIUM SERUM 141 mmol/L (136-145); UREA NITROGEN, BLOOD 14 mg/dL (7-18)
[2019-10-12 09:40] LABS: ALANINE AMINOTRANSFERASE 63 U/L (12-78); ALBUMIN 3.3 g/dL (3.4-5.0); ALKALINE PHOSPHATASE 62 U/L (46-116); ASPARTATE AMINOTRANSFERASE 36 U/L (15-37); BILIRUBIN,TOTAL 0.3 mg/dL (0.1-1.0); TOTAL PROTEIN, SERUM 6.8 g/dL (6.4-8.2)
[2019-10-12 09:50] LABS: PLATELET COUNT (AUTO) 95 K/uL (150-450)
[2019-10-12 09:56] VITALS: BP 163/100
== END 2019-10-12 10:38 | disposition home or self-care (01) ==
LOC: EMS 07:22
DX: I10 Essential (primary) hypertension (principal); R91.8 Other nonspecific abnormal finding of lung field; F31.9 Bipolar disorder, unspecified; E11.9 Type 2 diabetes mellitus without complications; E78.00 Pure hypercholesterolemia, unspecified; E03.9 Hypothyroidism, unspecified; F20.9 Schizophrenia, unspecified; F17.210 Nicotine dependence, cigarettes, uncomplicated; Z86.73 Personal history of transient ischemic attack (TIA), and cerebral infarction without residual deficits; Z91.012 Allergy to eggs; Z91.011 Allergy to milk products; Z79.899 Other long term (current) drug therapy; Z79.84 Long term (current) use of oral hypoglycemic drugs
CPT/HCPCS: 93005

== ENCOUNTER 2020-01-20 09:42 | Inpatient (IN) | payer MEDICARE, MEDICAID ==
[~2020-01-20] VITALS: Ht 188 cm; Wt 66.7 kg
[2020-01-20 10:19] LABS: GLUCOSE,POINT OF CARE 297 MG/DL (70-110)
[2020-01-20 10:42] LABS: BASOPHILS % (AUTO) 0.4 % (0.0-2.0); EOSINOPHILS % (AUTO) 0.6 % (1.0-6.0); HEMATOCRIT 37.9 % (41-53); HEMOGLOBIN 12.4 g/dL (13.5-17.5); LYMPHOCYTES # (AUTO) 0.6 K/uL (1.0-4.8); LYMPHOCYTES % (AUTO) 12.6 % (22.0-44.0); MEAN CORPUSCULAR HEMOGLOBIN 28.8 pg (26.0-34.0); MEAN CORPUSCULAR HGB CONC 32.6 G/dL (31.0-37.0); MEAN CORPUSCULAR VOLUME 88 fL (80-100); MONOCYTES # (AUTO) 0.4 K/uL (0.1-1.0); MONOCYTES % (AUTO) 8.5 % (2.0-9.0); NEUTROPHILS # (AUTO) 3.4 K/uL (1.8-7.7); NEUTROPHILS % (AUTO) 77.9 % (40.0-70.0); PLATELET COUNT (AUTO) 100 K/uL (150-450); RED BLOOD CELL COUNT(AUTO) 4.29 MIL/uL (4.50-5.90)
[2020-01-20 10:45] LABS: ANION GAP 8 mmol/L (8-16); CALCIUM, TOTAL 9.3 mg/dL (8.8-10.5); CARBON DIOXIDE 27 mmol/L (22-29); CHLORIDE 105 mmol/L (98-107); CREATININE 0.96 mg/dL (0.60-1.30); GLOMERULAR FILTR. RATE CALC > 60 mL/min (>60); GLUCOSE,RANDOM 259 mg/dL (70-110); SODIUM SERUM 140 mmol/L (136-145); UREA NITROGEN, BLOOD 19 mg/dL (7-18)
[2020-01-20 10:51] LABS: ALANINE AMINOTRANSFERASE 22 U/L (12-78); ALBUMIN 3.6 g/dL (3.4-5.0); ALKALINE PHOSPHATASE 80 U/L (46-116); ASPARTATE AMINOTRANSFERASE 32 U/L (15-37); BILIRUBIN,TOTAL 0.4 mg/dL (0.1-1.0); TOTAL PROTEIN, SERUM 7.1 g/dL (6.4-8.2)
[2020-01-20] MEDS ORDERED: BENZTROPINE MESYLATE 2 MG TABLET PO ONE (11:00)
[2020-01-20] MEDS ORDERED: KETOROLAC TROMETHAMINE 30 MG/ML VIAL IM ONE (11:00)
[2020-01-20] MEDS ORDERED: HALOPERIDOL 5 MG TABLET PO PRN (11:45)
[2020-01-20] MEDS ORDERED: ZOLPIDEM TARTRATE 10 MG TABLET PO PRN (11:45)
[2020-01-20 14:03] VITALS: BP 169/92
[2020-01-20 15:01] VITALS: BP 169/92
[2020-01-20 15:08] VITALS: BP 169/92
[2020-01-20] MEDS ORDERED: INFLUENZA VIRUS VACCINE QVS 2019-20 (3YR+)/PF 60 MCG/0.5 ML SYRINGE IM ONE (16:00)
[2020-01-20 16:48] VITALS: BP 155/95
[2020-01-20] MEDS: INSULIN LISPRO 100 UNITS/ML SQ PRN ×2 (18:07→21:50)
[2020-01-20] MEDS ORDERED: DEXTROSE 50%-WATER 25 GM/50 ML SYRINGE IVP PRN (18:15)
[2020-01-20] MEDS: LORazepam 2 MG TABLET PO PRN (18:24)
[2020-01-20 18:30] VITALS: BP 150/90
[2020-01-20] MEDS ORDERED: LOPERAMIDE HCL 2 MG CAPSULE PO PRN (18:30)
[2020-01-20] MEDS ORDERED: DOCUSATE SODIUM 100 MG CAPSULE PO PRN (18:30)
[2020-01-20] MEDS ORDERED: NICOTINE 14 MG/24 HOUR PATCH TD PRN (18:30)
[2020-01-20] MEDS ORDERED: IBUPROFEN 400 MG TABLET PO PRN (18:30)
[2020-01-20] MEDS ORDERED: MAG HYDROX/AL HYDROX/SIMETH ES 30 ML SUSPENSION UDCUP PO PRN (18:30)
[2020-01-20] MEDS ORDERED: CloNIDine HCL 0.1 MG TABLET PO PRN (18:30)
[2020-01-20] MEDS ORDERED: MAGNESIUM HYDROXIDE SUSPENSION 30 ML UDCUP PO PRN (18:30)
[2020-01-20] MEDS ORDERED: PETROLATUM,WHITE 28 GM JELLY TP PRN (18:30)
[2020-01-20] MEDS ORDERED: ACETAMINOPHEN 325 MG TABLET PO PRN (18:30)
[2020-01-20] MEDS ORDERED: ONDANSETRON HCL 4 MG TABLET PO PRN (18:30)
[2020-01-20] MEDS ORDERED: ALBUTEROL SULFATE HFA 90 MCG/PUFF 8 GM INHALER IH PRN (18:30)
[2020-01-20] MEDS ORDERED: GuaiFENesin/D-METHORPHAN [SUGAR-FREE] 200-20MG/10 ML SYRUP UDCUP PO PRN (18:30)
[2020-01-20 19:29] LABS: APPEARANCE,URINE CLEAR (CLEAR); BILIRUBIN,URINE NEGATIVE (NEGATIVE); GLUCOSE, URINE (UA) 250 mg/dL (NEGATIVE); KETONES,URINE NEGATIVE (NEGATIVE); LEUKOCYTE ESTERASE ,URINE NEGATIVE (NEGATIVE); NITRATE,URINE NEGATIVE (NEGATIVE); OCCULT BLOOD,URINE NEGATIVE (NEGATIVE); PROTEIN,URINE POS 1+ (NEGATIVE)
[2020-01-20 20:12] LABS: AMPHET/METH SCREEN,URINE POSITIVE (NEGATIVE); BARBITURATE SCREEN, URINE NEGATIVE (NEGATIVE); BENZODIAZEPINES SCREEN,URINE NEGATIVE (NEGATIVE); CANNABINOID SCREEN,URINE POSITIVE (NEGATIVE); COCAINE SCREEN,URINE NEGATIVE (NEGATIVE); METHADONE SCREEN, URINE NEGATIVE (NEGATIVE); OPIATE SCREEN,URINE NEGATIVE (NEGATIVE)
[2020-01-20 20:13] LABS: PHENCYCLIDINE SCREEN,URINE NEGATIVE (NEGATIVE)
[2020-01-20 20:44] LABS: BACTERIA,URINE None Seen /HPF (None Seen); RBC,URINE None Seen /HPF (0-2); SQUAMOUS EPITHELIAL CELL,UR Rare /LPF (None Seen); WBC,URINE None Seen /HPF (0-5)
[2020-01-21 06:01] LABS: GLUCOMETER DEV NAME(LOC) 3E.I 2; GLUCOSE,POINT OF CARE 171 MG/DL (70-110)
[2020-01-21] MEDS: INSULIN LISPRO 100 UNITS/ML SQ PRN ×3 (07:05→20:35)
[2020-01-21 07:18] LABS: BASOPHILS % (AUTO) 0.3 % (0.0-2.0); EOSINOPHILS % (AUTO) 0.5 % (1.0-6.0); HEMATOCRIT 38.1 % (41-53); HEMOGLOBIN 12.6 g/dL (13.5-17.5); LYMPHOCYTES # (AUTO) 0.7 K/uL (1.0-4.8); LYMPHOCYTES % (AUTO) 15.8 % (22.0-44.0); MEAN CORPUSCULAR HEMOGLOBIN 29.2 pg (26.0-34.0); MEAN CORPUSCULAR HGB CONC 33.2 G/dL (31.0-37.0); MEAN CORPUSCULAR VOLUME 88 fL (80-100); MONOCYTES # (AUTO) 0.4 K/uL (0.1-1.0); MONOCYTES % (AUTO) 9.2 % (2.0-9.0); NEUTROPHILS # (AUTO) 3.3 K/uL (1.8-7.7); NEUTROPHILS % (AUTO) 74.2 % (40.0-70.0); PLATELET COUNT (AUTO) 99 K/uL (150-450); RED BLOOD CELL COUNT(AUTO) 4.34 MIL/uL (4.50-5.90); RED CELL DISTRIBUTION WIDTH 12.6 % (11.5-14.5)
[2020-01-21 07:45] LABS: ALANINE AMINOTRANSFERASE 61 U/L (12-78); ALBUMIN 3.3 g/dL (3.4-5.0); ALKALINE PHOSPHATASE 77 U/L (46-116); ANION GAP 10 mmol/L (8-16); ASPARTATE AMINOTRANSFERASE 41 U/L (15-37); BILIRUBIN,TOTAL 0.2 mg/dL (0.1-1.0); CALCIUM, TOTAL 8.7 mg/dL (8.8-10.5); CARBON DIOXIDE 24 mmol/L (22-29); CHLORIDE 106 mmol/L (98-107); CHOL/HDL RATIO 4.4 (4.2-7.3); CHOLESTEROL 118 mg/dL (131-200); CREATININE 0.81 mg/dL (0.60-1.30); GLOMERULAR FILTR. RATE CALC > 60 mL/min (>60); GLUCOSE,RANDOM 178 mg/dL (70-110); HDL CHOLESTEROL 27 mg/dL (40-60); LDL CHOL (CALC.) 67 mg/dL (0-130); POTASSIUM 3.3 mmol/L (3.5-5.1); SODIUM SERUM 140 mmol/L (136-145); THYROID STIMULATING HORMONE 1.74 uIU/mL (0.36-3.74); TOTAL PROTEIN, SERUM 6.7 g/dL (6.4-8.2); TRIGLYCERIDES 121 mg/dL (15-150); UREA NITROGEN, BLOOD 21 mg/dL (7-18)
[2020-01-21 07:52] LABS: HEMOGLOBIN A1C 8.5 % (3.8-5.6)
[2020-01-21] MEDS ORDERED: AmLODIPine BESYLATE 5 MG TABLET PO SCH (09:00)
[2020-01-21 10:34] VITALS: BP 154/90
[2020-01-21] MEDS ORDERED: ALBUTEROL SULFATE HFA 90 MCG/PUFF 8 GM INHALER IH PRN (11:45)
[2020-01-21] MEDS ORDERED: DOCUSATE SODIUM 100 MG CAPSULE PO PRN (11:45)
[2020-01-21] MEDS ORDERED: GuaiFENesin/D-METHORPHAN [SUGAR-FREE] 200-20MG/10 ML SYRUP UDCUP PO PRN (11:45)
[2020-01-21] MEDS ORDERED: PETROLATUM,WHITE 28 GM JELLY TP PRN (11:45)
[2020-01-21] MEDS ORDERED: ACETAMINOPHEN 325 MG TABLET PO PRN (11:45)
[2020-01-21] MEDS ORDERED: MAGNESIUM HYDROXIDE SUSPENSION 30 ML UDCUP PO PRN (11:45)
[2020-01-21] MEDS ORDERED: CloNIDine HCL 0.1 MG TABLET PO PRN (11:45)
[2020-01-21] MEDS ORDERED: NICOTINE 14 MG/24 HOUR PATCH TD PRN (11:45)
[2020-01-21] MEDS ORDERED: ONDANSETRON HCL 4 MG TABLET PO PRN (11:45)
[2020-01-21] MEDS ORDERED: MAG HYDROX/AL HYDROX/SIMETH ES 30 ML SUSPENSION UDCUP PO PRN (11:45)
[2020-01-21] MEDS ORDERED: CHOL100018 PO (12:16)
[2020-01-21 13:31] LABS: GLUCOMETER DEV NAME(LOC) 3E.I 2; GLUCOSE,POINT OF CARE 234 MG/DL (70-110)
[2020-01-21] MEDS: BENZTROPINE MESYLATE 1 MG TABLET PO SCH ×2 (14:48→20:32)
[2020-01-21] MEDS: ARIPiprazole 15 MG TABLET PO SCH (14:49)
[2020-01-21 16:22] VITALS: BP 164/98
[2020-01-21] MEDS: OXYBUTYNIN CHLORIDE 5 MG TABLET PO SCH (16:29)
[2020-01-21] MEDS: MetFORMIN HCL 500 MG TABLET PO SCH (16:29)
[2020-01-21] MEDS: CARVEDILOL 25 MG TABLET PO SCH (16:29)
[2020-01-21] MEDS: LORazepam 2 MG TABLET PO PRN (16:41)
[2020-01-21] MEDS: DIVALPROEX SODIUM 500 MG ER TABLET PO SCH (20:32)
[2020-01-22 00:20] VITALS: BP 126/61
[2020-01-22] MEDS: LORazepam 2 MG TABLET PO PRN (00:53)
[2020-01-22] MEDS: LOPERAMIDE HCL 2 MG CAPSULE PO PRN (04:38)
[2020-01-22 05:51] LABS: GLUCOMETER DEV NAME(LOC) 3E.I 2; GLUCOSE,POINT OF CARE 163 MG/DL (70-110)
[2020-01-22] MEDS: LEVOTHYROXINE SODIUM 25 MCG TABLET PO SCH (06:31)
[2020-01-22] MEDS: MetFORMIN HCL 500 MG TABLET PO SCH ×2 (06:31→16:15)
[2020-01-22] MEDS: IBUPROFEN 400 MG TABLET PO PRN (06:44)
[2020-01-22] MEDS: INSULIN LISPRO 100 UNITS/ML SQ PRN ×3 (06:52→17:18)
[2020-01-22 07:35] LABS: MAGNESIUM 1.1 mg/dL (1.80-2.40); PHOSPHORUS 2.5 mg/dL (2.5-4.9)
[2020-01-22] MEDS: TAMSULOSIN HCL 0.4 MG CAPSULE PO SCH (08:14)
[2020-01-22] MEDS: ARIPiprazole 15 MG TABLET PO SCH (08:14)
[2020-01-22] MEDS: FOLIC ACID 1 MG TABLET PO SCH (08:14)
[2020-01-22] MEDS: LISINOPRIL 5 MG TABLET PO SCH (08:14)
[2020-01-22] MEDS: THIAMINE HCL 100 MG TABLET PO SCH (08:14)
[2020-01-22] MEDS: CHOLECALCIFEROL (VIT D3) 1,000 UNITS [25 MCG] TABLET PO SCH (08:14)
[2020-01-22] MEDS: MULTIVITAMINS WITH MINERALS, THERAPEUTIC TABLET PO SCH (08:14)
[2020-01-22] MEDS: OXYBUTYNIN CHLORIDE 5 MG TABLET PO SCH ×2 (08:15→16:15)
[2020-01-22] MEDS: CARVEDILOL 25 MG TABLET PO SCH ×2 (08:15→16:15)
[2020-01-22] MEDS: BENZTROPINE MESYLATE 1 MG TABLET PO SCH ×2 (08:17→20:05)
[2020-01-22] MEDS: DIVALPROEX SODIUM 500 MG ER TABLET PO SCH ×2 (08:17→20:05)
[2020-01-22 08:36] VITALS: BP 147/98
[2020-01-22 11:48] LABS: GLUCOMETER DEV NAME(LOC) 3E.I 2; GLUCOSE,POINT OF CARE 166 MG/DL (70-110)
[2020-01-22 16:00] VITALS: BP 144/83
[2020-01-22 16:29] LABS: GLUCOMETER DEV NAME(LOC) 3E.I 2; GLUCOSE,POINT OF CARE 144 MG/DL (70-110)
[2020-01-22 21:34] LABS: GLUCOMETER DEV NAME(LOC) 3E.I 2; GLUCOSE,POINT OF CARE 139 MG/DL (70-110)
[2020-01-23 05:38] LABS: GLUCOMETER DEV NAME(LOC) 3E.I 2; GLUCOSE,POINT OF CARE 162 MG/DL (70-110)
[2020-01-23] MEDS: MetFORMIN HCL 500 MG TABLET PO SCH ×2 (07:02→17:27)
[2020-01-23] MEDS: LEVOTHYROXINE SODIUM 25 MCG TABLET PO SCH (07:02)
[2020-01-23] MEDS: INSULIN LISPRO 100 UNITS/ML SQ PRN ×3 (07:03→20:39)
[2020-01-23] MEDS: TAMSULOSIN HCL 0.4 MG CAPSULE PO SCH (08:16)
[2020-01-23] MEDS: BENZTROPINE MESYLATE 1 MG TABLET PO SCH ×2 (08:16→20:32)
[2020-01-23] MEDS: THIAMINE HCL 100 MG TABLET PO SCH (08:16)
[2020-01-23] MEDS: FOLIC ACID 1 MG TABLET PO SCH (08:16)
[2020-01-23] MEDS: DIVALPROEX SODIUM 500 MG ER TABLET PO SCH ×2 (08:16→20:32)
[2020-01-23] MEDS: LISINOPRIL 5 MG TABLET PO SCH (08:16)
[2020-01-23] MEDS: CHOLECALCIFEROL (VIT D3) 1,000 UNITS [25 MCG] TABLET PO SCH (08:16)
[2020-01-23] MEDS: MULTIVITAMINS WITH MINERALS, THERAPEUTIC TABLET PO SCH (08:16)
[2020-01-23] MEDS: ARIPiprazole 15 MG TABLET PO SCH (08:16)
[2020-01-23] MEDS: CARVEDILOL 25 MG TABLET PO SCH ×2 (08:17→16:29)
[2020-01-23] MEDS: OXYBUTYNIN CHLORIDE 5 MG TABLET PO SCH ×2 (08:17→16:29)
[2020-01-23 09:37] VITALS: BP 139/60
[2020-01-23 11:51] LABS: GLUCOMETER DEV NAME(LOC) 3E.I 2; GLUCOSE,POINT OF CARE 142 MG/DL (70-110)
[2020-01-23 16:30] VITALS: BP 138/76
[2020-01-23 16:41] LABS: GLUCOMETER DEV NAME(LOC) 3E.I 2; GLUCOSE,POINT OF CARE 140 MG/DL (70-110)
[2020-01-23 21:16] LABS: GLUCOMETER DEV NAME(LOC) 3E.I 2; GLUCOSE,POINT OF CARE 151 MG/DL (70-110)
[2020-01-24 06:39] LABS: GLUCOMETER DEV NAME(LOC) 3E.I 2; GLUCOSE,POINT OF CARE 162 MG/DL (70-110)
[2020-01-24] MEDS: MetFORMIN HCL 500 MG TABLET PO SCH (07:10)
[2020-01-24] MEDS: LEVOTHYROXINE SODIUM 25 MCG TABLET PO SCH (07:10)
[2020-01-24] MEDS: INSULIN LISPRO 100 UNITS/ML SQ PRN (07:11)
[2020-01-24 08:00] VITALS: BP 152/107
[2020-01-24] MEDS: THIAMINE HCL 100 MG TABLET PO SCH (08:51)
[2020-01-24] MEDS: FOLIC ACID 1 MG TABLET PO SCH (08:51)
[2020-01-24] MEDS: CHOLECALCIFEROL (VIT D3) 1,000 UNITS [25 MCG] TABLET PO SCH (08:51)
[2020-01-24] MEDS: TAMSULOSIN HCL 0.4 MG CAPSULE PO SCH (08:51)
[2020-01-24] MEDS: ARIPiprazole 15 MG TABLET PO SCH (08:51)
[2020-01-24] MEDS: LISINOPRIL 5 MG TABLET PO SCH (08:51)
[2020-01-24] MEDS: MULTIVITAMINS WITH MINERALS, THERAPEUTIC TABLET PO SCH (08:51)
[2020-01-24] MEDS: BENZTROPINE MESYLATE 1 MG TABLET PO SCH (08:52)
[2020-01-24] MEDS: CARVEDILOL 25 MG TABLET PO SCH (08:52)
[2020-01-24] MEDS: OXYBUTYNIN CHLORIDE 5 MG TABLET PO SCH (08:52)
[2020-01-24] MEDS: DIVALPROEX SODIUM 500 MG ER TABLET PO SCH (08:54)
[2020-01-24 11:23] LABS: GLUCOMETER DEV NAME(LOC) 3E.I 2; GLUCOSE,POINT OF CARE 123 MG/DL (70-110)
[2020-01-24] MEDS: LOPERAMIDE HCL 2 MG CAPSULE PO PRN (13:03)
[2020-01-24] MEDS ORDERED: ARIP10TA8 PO (13:14)
[2020-01-24] MEDS ORDERED: BENZ1TAB10 PO (13:15)
[2020-01-24 13:16] VITALS: BP 147/91
[2020-01-24] MEDS ORDERED: OXYB5 PO (13:17)
[2020-01-24] MEDS: IBUPROFEN 400 MG TABLET PO PRN (13:17)
[2020-01-24] MEDS ORDERED: FOLI1 PO (13:22)
[2020-01-24] MEDS ORDERED: LEVO25TA9 PO (13:22)
[2020-01-24] MEDS ORDERED: LISI-660 PO (13:23)
[2020-01-24] MEDS ORDERED: MULT-1239 PO (13:24)
[2020-01-24] MEDS ORDERED: METF-960 PO (13:25)
[2020-01-24] MEDS ORDERED: LISINOPRIL 5 MG TABLET PO STA (13:26)
[2020-01-24] MEDS ORDERED: TAMS-13 PO (13:26)
[2020-01-24] MEDS ORDERED: THIA100T67 PO (13:26)
[2020-01-24 14:41] VITALS: BP 161/91
[2020-01-24] MEDS ORDERED: AmLODIPine BESYLATE 5 MG TABLET PO ONE (14:45)
[2020-01-25] MEDS ORDERED: LISINOPRIL 10 MG TABLET PO SCH (09:00)
[2020-01-25] MEDS ORDERED: LISI-661 PO (19:01)
[2020-01-25] MEDS ORDERED: DIVA500T52 PO (19:01)
[2020-01-25] MEDS ORDERED: ARIP15TA2 PO (19:01)
== END 2020-01-24 16:15 | disposition home or self-care (01) | DRG 885 ==
LOC: EMS 09:43 → 3EI 12:37
PROVIDERS: ADMIT Psychiatry & Neurology Child & Adolescent Psychiatry; ATTEND Psychiatry & Neurology Child & Adolescent Psychiatry
DX: F25.1 Schizoaffective disorder, depressive type (principal); F10.231 Alcohol dependence with withdrawal delirium; R45.851 Suicidal ideations; E11.9 Type 2 diabetes mellitus without complications; Z86.73 Personal history of transient ischemic attack (TIA), and cerebral infarction without residual deficits; I10 Essential (primary) hypertension; E78.00 Pure hypercholesterolemia, unspecified; F17.210 Nicotine dependence, cigarettes, uncomplicated; E55.9 Vitamin D deficiency, unspecified; E03.9 Hypothyroidism, unspecified; E87.6 Hypokalemia; F15.10 Other stimulant abuse, uncomplicated; R32 Unspecified urinary incontinence
CPT/HCPCS: 80307; 83036; 83735; 84100; 84132; 84443; 93005; G0480; J1885